=== PATIENT | male | born 1975 | race Caucasian/White ===

== ENCOUNTER 2018-09-22 05:51 | Emergency (ER) | payer OTHER, MEDICAID ==
[2018-09-22 05:57] VITALS: BP 125/81
--- NOTE | 2018-09-22 06:23 | ER Document Report ---
ED General - General Chief Complaint: Finger Injury Stated Complaint: FINGER PAIN Time Seen by Provider: 09/22/18 06:04 Primary Care Provider: [facility] [Provider Group] - Follow up in 3-5 days DANE JOHNSON MD [ACTIVE STAFF] - Follow up in 3-5 days Notes: Patient is a 43-year-old male that presents to the emergency department for chief complaint of left middle finger pain after injury. Patient reports that a few weeks ago, he was at work, and his hand slipped and he jammed his left middle finger against the wall. He states has been working through the pain because it was a newer job and he could not afford to take time off so he eventually decided come in to have it checked out since he still been having some pain. Pain is mainly at the PIP joint, and has been swollen since then, he continues to use it. He is left-handed. He denies any other injuries. Denies numbness, tingling or weakness. He currently rates the pain as a 2 out of 10, is an aching pain, worse with range of motion. Past Medical History: Denies chronic medical conditions Past Surgical History: Hand surgery, wrist surgery Social History: Admits to smoking cigarettes, denies alcohol or drug use. Family History: Reviewed and noncontributory for presenting illness Allergies: Reviewed, see documented allergy list. REVIEW OF SYSTEMS: Other than noted above, the 12 point review of systems was reviewed with the patient and were negative, all pertinent findings are included in the HPI. PHYSICAL EXAMINATION: Vital signs reviewed, nursing noted reviewed. GENERAL: Well-appearing, well-nourished and in no acute distress. HEAD: Atraumatic, normocephalic. EYES: Eyes appear normal, sclera anicteric, conjunctiva are normal. ENT: Moist mucous membranes. NECK: Normal range of motion, supple without lymphadenopathy LUNGS: Wheezing noted throughout all lung boles, bilaterally, no acute respiratory distress. HEART: Regular rate and rhythm without murmurs EXTREMITIES: The left middle finger, has a mildly swollen PIP joint, that is tender to palpate, focal tenderness proximally to the joint, but patient does have good range of motion with flexion and extension. Pain is worse with resistance. He is also noted to have a small subungual hematoma of the middle finger as well on the left, which she reports is from a different injury. The rest the patient's extremity exam is grossly unremarkable. NEUROLOGICAL: No focal neurological deficits. Moves all extremities spontaneously Motor and sensory grossly intact on exam. PSYCH: Normal mood, normal affect. SKIN: Warm, Dry, normal turgor, no rashes or lesions noted on exposed skin TRAVEL OUTSIDE OF THE [place] IN LAST 30 DAYS: No - Related Data Allergies/Adverse Reactions: succinylcholine Allergy (Intermediate, Verified 09/22/18 05:53) Past Medical History - Social History Smoking Status: Current Every Day Smoker Family History: Reviewed & Not Pertinent Physical Exam - Vital signs Vitals: Temp Pulse Resp BP Pulse Ox 97.8 F 84 20 125/81 99 09/22/18 05:54 09/22/18 05:54 09/22/18 05:54 09/22/18 05:54 09/22/18 05:54 Course - Re-evaluation Re-evalutation: Patient seen and examined, vital signs reviewed. Patient appeared well, no acute distress. X-rays were obtained of the left fingers, did not reveal any acute fracture, will place in a splint, likely sprain of the PIP joint, have him follow-up with hand surgery. Patient agreeable to plan of care, advised NSAIDs and maintaining the splint until further advised, at least 1 week. Patient will also be treated for bronchitis with bronchospasm, advised to discontinue smoking, education given on smoking cessation, prescribed at his own for 5 days, and dispense albuterol inhaler advised to use 2 puffs every 4 hours as needed for cough and shortness of breath. Patient agreed with plan of care, and discharged home in stable condition. *Note is created using voice recognition software and may contain spelling, syntax or grammatical errors. - Vital Signs Vital signs: Temp Pulse Resp BP Pulse Ox 97.8 F 84 20 125/81 99 09/22/18 05:54 09/22/18 05:54 09/22/18 05:54 09/22/18 05:54 09/22/18 05:54 Discharge - Discharge Clinical Impression: Finger injury, Bronchospasm with bronchitis, acute Condition: Stable Disposition: HOME, SELF-CARE Instructions: Sprained Finger ([facility]) Prescriptions: Ibuprofen [Motrin 600 Mg Tablet] 600 mg PO TID #15 tablet RX: Prednisone [Deltasone 10 mg Tablet] 40 mg PO DAILY #20 tablet Referrals: ELIZABETH,DANE, MD [ACTIVE STAFF] - Follow up in 3-5 days [facility] [Provider Group] - Follow up in 3-5 days
[2018-09-22] MEDS ORDERED: ALBUTEROL SULFATE HFA (90 MCG/PUFF) 8 GM MDI (1 MDI/ER DISP) IH ONE (06:51)
--- NOTE | 2018-09-22 07:00 | RADIOLOGY REPORT (SQ) ---
EXAM DESCRIPTION: XR FINGERS COMPLETED DATE/TME: 09/22/2018 00:00 CLINICAL HISTORY: 43 years, Male, injuried middle finger COMPARISON: None. NUMBER OF VIEWS: Three TECHNIQUE: Three views of the left middle finger. LIMITATIONS: None. FINDINGS: There is no acute fracture or dislocation. The joint spaces are preserved. There is mild soft tissue swelling around the third PIP joint. No radiopaque foreign body. IMPRESSION: No acute fracture or dislocation. copyright 2010 [employer]- All Rights Reserved
== END 2018-09-22 07:02 | disposition home or self-care (01) ==
LOC: ER 05:51
DX: S69.92XA Unspecified injury of left wrist, hand and finger(s), initial encounter (principal); M25.442 Effusion, left hand; M79.645 Pain in left finger(s); W22.01XA Walked into wall, initial encounter; Y99.0 Civilian activity done for income or pay; J20.9 Acute bronchitis, unspecified; F17.210 Nicotine dependence, cigarettes, uncomplicated; Z88.8 Allergy status to other drugs, medicaments and biological substances
CPT/HCPCS: 99283; 73140; J3490

== ENCOUNTER 2019-03-02 18:14 | Emergency (ER) | payer SELFPAY ==
--- NOTE | 2019-03-02 19:00 | ER Document Report ---
ED Medical Screen (RME) - General Chief Complaint: Psych Problem Stated Complaint: IVC Time Seen by Provider: 03/02/19 18:48 Notes: Patient is a 43-year-old male who presents to the emergency department with IVC paperwork. He was at [place] for alcohol detox. He checked in about 6 days ago. He was having auditory and visual hallucinations and was destroying the property in the mailbox at [place]. He was throwing objects, therefore law enforcement was called and patient is now currently under custody. They gave him high doses of antipsychotics, but the patient was still acting out. Patient states that the only pain he has is in his left upper leg, but is due to falling off a ladder when he was at work about 6 weeks ago. Denies any suicidal or homicidal ideation. Exam: Calm and cooperative, in custody. I have greeted and performed a rapid initial assessment of this patient. A comprehensive ED assessment and evaluation of the patient, analysis of test results and completion of medical decision making process will be conducted by an additional ED providers. TRAVEL OUTSIDE OF THE [place] IN LAST 30 DAYS: No - Related Data Allergies/Adverse Reactions: succinylcholine Allergy (Intermediate, Verified 02/25/19 00:01) Past Medical History Renal/ Medical History: Denies: Hx Peritoneal Dialysis Physical Exam - Vital signs Vitals: Temp Pulse Resp BP Pulse Ox 98.4 F 105 H 18 139/94 H 98 03/02/19 18:22 03/02/19 18:22 03/02/19 18:22 03/02/19 18:22 03/02/19 18:22 Course - Vital Signs Vital signs: Temp Pulse Resp BP Pulse Ox 98.4 F 105 H 18 139/94 H 98 03/02/19 18:22 03/02/19 18:22 03/02/19 18:22 03/02/19 18:22 03/02/19 18:22
[2019-03-02 20:43] LABS: ABSOLUTE EOSINOPHILS # (AUTO) 0.1 10^3/uL (0.0-0.6); ABSOLUTE LYMPHOCYTES (AUTO) 1.2 10^3/uL (0.5-4.7); ABSOLUTE MONOCYTES (AUTO) 0.9 10^3/uL (0.1-1.4); ABSOLUTE NEUT (AUTO) 6.5 10^3/uL (1.7-8.2); BASOPHILS % (AUTO) 0.4 % (0-2); EOSINOPHILS % (AUTO) 1.4 % (0-6); HEMATOCRIT 41.4 % (37.9-51.0); HEMOGLOBIN 14.2 g/dL (13.5-17.0); LYMPHOCYTES % (AUTO) 13.8 % (13-45); MEAN CORPUSCULAR HEMOGLOBIN 31.8 pg (27.0-33.4); MEAN CORPUSCULAR HGB CONC 34.2 g/dL (32.0-36.0); MEAN CORPUSCULAR VOLUME 93 fl (80-97); PLATELET COUNT 146 10^3/uL (150-450); RED BLOOD COUNT 4.45 10^6/uL (4.35-5.55); RED CELL DISTRIBUTION WIDTH 13.4 % (11.5-14.0); SEGMENTED NEUTROPHILS % (AUTO) 74.4 % (42-78); TOTAL CELLS COUNTED % (AUTO) 100 %; WHITE BLOOD COUNT 8.7 10^3/uL (4.0-10.5)
[2019-03-02 20:49] LABS: APPEARANCE,URINE CLEAR; BILIRUBIN,URINE NEGATIVE (NEGATIVE); COLOR,URINE STRAW; GLUCOSE, URINE NEGATIVE (NEGATIVE); KETONES,URINE NEGATIVE (NEGATIVE); LEUKOCYTE ESTERASE,URINE NEGATIVE (NEGATIVE); NITRITE,URINE NEGATIVE (NEGATIVE); PROTEIN,URINE NEGATIVE (NEGATIVE); URINE SPECIFIC GRAVITY 1.002; UROBILINOGEN,URINE NEGATIVE mg/dL (<2.0)
[2019-03-02 21:05] LABS: URINE AMPHETAMINES SCREEN NEGATIVE; URINE BARBITURATES SCREEN NEGATIVE; URINE BENZODIAZEPINES SCREEN NEGATIVE; URINE COCAINE SCREEN NEGATIVE; URINE MARIJUANA (THC) SCREEN UNCONFIRMED POSITIVE; URINE METHADONE SCREEN NEGATIVE; URINE PHENCYCLIDINE SCREEN NEGATIVE
[2019-03-02 21:21] LABS: ALBUMIN 4.2 g/dL (3.5-5.0); ALKALINE PHOSPHATASE 99 U/L (38-126); ANION GAP 9 (5-19); ASPARTATE AMINO TRANSFERASE 48 U/L (17-59); BILIRUBIN,DIRECT 0.3 mg/dL (0.0-0.4); BILIRUBIN,TOTAL 0.3 mg/dL (0.2-1.3); BLOOD UREA NITROGEN 12 mg/dL (7-20); CALCIUM 9.8 mg/dL (8.4-10.2); CARBON DIOXIDE 29 mmol/L (22-30); CHLORIDE 102 mmol/L (98-107); GLUCOSE 147 mg/dL (75-110); POTASSIUM 4.6 mmol/L (3.6-5.0); TOTAL PROTEIN 6.9 g/dL (6.3-8.2)
[2019-03-02 21:27] LABS: ACETAMINOPHEN < 10 ug/mL (10-30); ALCOHOL < 10 mg/dL (NONE DETECTED); SALICYLATE < 1.0 mg/dL (2.0-20.0)
--- NOTE | 2019-03-02 21:59 | EKG REPORT ---
SEVERITY:- BORDERLINE ECG - SINUS RHYTHM PROBABLE LEFT ATRIAL ABNORMALITY : Confirmed by: Martín Foote MD 02-Mar-2019 21:59:04
--- NOTE | 2019-03-03 01:37 | ER Document Report ---
ED Psych Disorder / Suicide - General TRAVEL OUTSIDE OF THE [place] IN LAST 30 DAYS: No <SHANNON JOE - Last Filed: 03/03/19 01:32> <FREEMAN GUERIN - Last Filed: 03/03/19 11:47> <MARILIA FERREIRA - Last Filed: 03/03/19 13:09> - General Chief Complaint: Psych Problem Stated Complaint: IVC Time Seen by Provider: 03/02/19 18:48 Primary Care Provider: [facility] [Outside] - Follow up as needed [facility] [Outside] - 03/12/19 11:00 am Notes: RME NOTE: Patient is a 43-year-old male who presents to the emergency department with IVC paperwork. He was at [place] for alcohol detox. He checked in about 6 days ago. He was having auditory and visual hallucinations and was destroying the property in the mailbox at [place]. He was throwing objects, therefore law enforcement was called and patient is now currently under custody. They gave him high doses of antipsychotics, but the patient was still acting out. Patient states that the only pain he has is in his left upper leg, but is due to falling off a ladder when he was at work about 6 weeks ago. Denies any suicidal or homicidal ideation. Exam: Calm and cooperative, in custody. MY HPI: Patient is a cooperative 43-year-old male presents to the emergency department stating "I threw a couple of pens and everybody got so upset." Patient voices that he picked the pens up and is unsure of why he is in the emergency room. Patient's denying suicidal or homicidal ideations. He does admit to visual and auditory hallucinations. States he does not currently have them but has had the m recently. IVC paperwork is already filled out by Nyla Dunbar. Paperwork is stating that the patient has been given high doses of antipsychotics at the facility but is still experiencing hallucinations and increased agitation. Patient has been very calm and cooperative with staff in the emergency room thus far. (SHANNON JOE) - Related Data Allergies/Adverse Reactions: succinylcholine Allergy (Intermediate, Verified 02/25/19 00:01) Past Medical History - General Information source: Patient, Outside Facility Records - Social History Smoking Status: Unknown if Ever Smoked Family History: Reviewed & Not Pertinent Patient has suicidal ideation: No Patient has homicidal ideation: No Renal/ Medical History: Denies: Hx Peritoneal Dialysis <HEATHANTONIOVARUNYASH - Last Filed: 03/03/19 01:32> Review of Systems - Review of Systems Constitutional: No symptoms reported EENT: No symptoms reported Cardiovascular: No symptoms reported Respiratory: No symptoms reported Gastrointestinal: No symptoms reported Genitourinary: No symptoms reported Male Genitourinary: No symptoms reported Musculoskeletal: No symptoms reported Skin: No symptoms reported Hematologic/Lymphatic: No symptoms reported Neurological/Psychological: See HPI <SHANNON JOE - Last Filed: 03/03/19 01:32> Physical Exam <SHANNON JOE - Last Filed: 03/03/19 01:32> - Vital signs Vitals: Temp Pulse Resp BP Pulse Ox 98.4 F 105 H 18 139/94 H 98 03/02/19 18:22 03/02/19 18:22 03/02/19 18:22 03/02/19 18:22 03/02/19 18:22 - Notes Notes: GENERAL: Alert, interacts well. No acute distress. HEAD: Normocephalic, atraumatic. EYES: Pupils equal, round, and reactive to light. Extraocular movements intact. ENT: Oral mucosa moist, tongue midline. NECK: Full range of motion. Supple. Trachea midline. LUNGS: Clear to auscultation bilaterally, no wheezes, rales, or rhonchi. No respiratory distress. HEART: Regular rate and rhythm. No murmur ABDOMEN: Soft, non-tender. Non-distended. Bowel sounds present in all 4 quad rants. EXTREMITIES: Moves all 4 extremities spontaneously. No edema, normal radial and dorsalis pedis pulses bilaterally. No cyanosis. BACK: no cervical, thoracic, lumbar midline tenderness. No saddle anesthesia, normal distal neurovascular exam. NEUROLOGICAL: Alert and oriented x3. Normal speech. cranial nerves II through XII grossly intact PSYCH: Normal affect, normal mood. SKIN: Warm, dry, normal turgor. No rashes or lesions noted. (SHANNON JOE) Course - Laboratory Result Diagrams: 03/02/19 20:20 03/02/19 20:20 <SHANNON JOE - Last Filed: 03/03/19 01:32> - Laboratory Result Diagrams: 03/02/19 20:20 03/02/19 20:20 <FREEMAN GUERIN - Last Filed: 03/03/19 11:47> - Laboratory Result Diagrams: 03/02/19 20:20 03/02/19 20:20 <MARILIA FERREIRA - Last Filed: 03/03/19 13:09> - Re-evaluation Re-evalutation: Laboratory 03/02/19 03/02/19 03/02/19 20:20 20:20 20:20 WBC 8.7 RBC 4.45 Hgb 14.2 Hct 41.4 MCV 93 MCH 31.8 MCHC 34.2 RDW 13.4 Plt Count 146 L Seg Neutrophils % 74.4 Lymphocytes % 13.8 Monocytes % 10.0 Eosinophils % 1.4 Basophils % 0.4 Absolute Neutrophils 6.5 Absolute Lymphocytes 1.2 Absolute Monocytes 0.9 Absolute Eosinophils 0.1 Absolute Basophils 0.0 Sodium 139.5 Potassium 4.6 Chloride 102 Carbon Dioxide 29 Anion Gap 9 BUN 12 Creatinine 0.99 Est GFR ( Amer) > 60 Est GFR (Non-Af Amer) > 60 Glucose 147 H Calcium 9.8 Total Bilirubin 0.3 Direct Bilirubin 0.3 Neonat Total Bilirubin Not Reportable Neonat Direct Bilirubin Not Reportable Neonat Indirect Bili Not Reportable AST 48 ALT 33 Alkaline Phosphatase 99 Total Protein 6.9 Albumin 4.2 Urine Color STRAW Urine Appearance CLEAR Urine pH 7.0 Ur Specific [place] 1.002 Urine Protein NEGATIVE Urine Glucose (UA) NEGATIVE Urine Ketones NEGATIVE Urine Blood NEGATIVE Urine Nitrite NEGATIVE Urine Bilirubin NEGATIVE Urine Urobilinogen NEGATIVE Ur Leukocyte Esterase NEGATIVE Urine WBC (Auto) 0 Urine Mucus (Auto) RARE Urine Ascorbic Acid NEGATIVE Salicylates < 1.0 L Urine Opiates Screen Urine Methadone Screen Acetaminophen < 10 L Ur Barbiturates Screen Ur Phencyclidine Scrn Ur Amphetamines Screen U Benzodiazepines Scrn Urine Cocaine Screen U Marijuana (THC) Screen Serum Alcohol < 10 03/02/19 20:20 WBC RBC Hgb Hct MCV MCH MCHC RDW Plt Count Seg Neutrophils % Lymphocytes % Monocytes % Eosinophils % Basophils % Absolute Neutrophils Absolute Lymphocytes Absolute Monocytes Absolute Eosinophils Absolute Basophils Sodium Potassium Chloride Carbon Dioxide Anion Gap BUN Creatinine Est GFR ( Amer) Est GFR (Non-Af Amer) Glucose Calcium Total Bilirubin Direct Bilirubin Neonat Total Bilirubin Neonat Direct Bilirubin Neonat Indirect Bili AST ALT Alkaline Phosphatase Total Protein Albumin Urine Color Urine Appearance Urine pH Ur Specific [place] Urine Protein Urine Glucose (UA) Urine Ketones Urine Blood Urine Nitrite Urine Bilirubin Urine Urobilinogen Ur Leukocyte Esterase Urine WBC (Auto) Urine Mucus (Auto) Urine Ascorbic Acid Salicylates Urine Opiates Screen NEGATIVE Urine Methadone Screen NEGATIVE Acetaminophen Ur Barbiturates Screen NEGATIVE Ur Phencyclidine Scrn NEGATIVE Ur Amphetamines Screen NEGATIVE U Benzodiazepines Scrn NEGATIVE Urine Cocaine Screen NEGATIVE U Marijuana (THC) Screen UNCONFIRMED POSITIVE Serum Alcohol Patient's EKG shows a sinus rhythm at a rate of 86, QTc 426, no ST segment elevations or depressions noted. Patient is currently medically cleared awaiting psychiatric evaluation. (SHANNON JOE) - Vital Signs Vital signs: Temp Pulse Resp BP Pulse Ox 97.6 F 72 18 127/85 H 100 03/03/19 07:01 03/03/19 11:37 03/03/19 11:37 03/03/19 11:37 03/03/19 11:37 - Laboratory Laboratory results interpreted by ia: 03/02/19 03/02/19 20:20 20:20 Plt Count 146 L Glucose 147 H Salicylates < 1.0 L Acetaminophen < 10 L Discharge <SHANNON JOE - Last Filed: 03/03/19 01:32> <FREEMAN GUERIN - Last Filed: 03/03/19 11:47> <MARILIA FERREIRA - Last Filed: 03/03/19 13:09> - Discharge Clinical Impression: Hallucination, Status post alcohol detoxification Condition: Stable Disposition: HOME, SELF-CARE Additional Instructions: You have been evaluated by both medical and behavioral health providers while in the emergency department. You have been cleared from both acute medical and psychiatric services. You went to the [facility] the past 6 days for alcohol detoxification, do not wish to return, mentioned being on a wait list for recovery program, and agreed to linkage to outpatient dual diagnosis (mental health and substance abuse) treatment. Hallucinations (per [facility]) You seem to be having hallucinations. Hallucinations are seeing, hearing, or feeling things that don't exist. These symptoms commonly occur with drug abuse and schizophrenia. Drugs like PCP, LSD, MDMA, peyote, and "psychedelic mushrooms" can cause frightening hallucinations. Users of methamphetamine or crack cocaine often see and feel bugs crawling on their skin. Patients with schizophrenia may hear voices that no one else can hear. The delusions of schizophrenia often involve conspiracies or relationships that are not real. When symptoms are due to drug abuse, the mental state usually improves as the drug wears off. Someone you trust should be with you until you are better, to protect you and calm your fears. Tranquilizer medicine is helpful at controlling hallucinations, anxiety, and deluded thoughts. Get a proper diet and enough sleep. Most patients do very well when they get proper medical treatment and social support. You should return at once if your symptoms get worse, if you are having suicidal thoughts or thoughts about hurting others, or if you feel that you are in danger. Alcohol Withdrawal (what you may have been experiencing or going through while in detoxification at [facility]) Your symptoms are caused by alcohol withdrawal. After a period of frequent drinking, the brain and body are changed by the alcohol. When you quit or reduce your drinking, the nervous system becomes unstable. Withdrawal symptoms can start a few hours after your last drink, but sometimes don't begin until a couple of days later. Symptoms can include shakiness, sweating, insomnia, nausea, vomiting, fearfulness, hallucinations, and seizures. In addition to the acute effects of alcohol withdrawal, we often have to deal with the medical effects of alcoholism. These problems often include dehydration, stomach irritation, intestinal bleeding, low blood sugar, liver disease, and pancreas inflammation. Treatment for alcohol withdrawal includes mild sedatives, vitamins, and fluids. You need to be with someone who can help if symptoms become severe. Many patients can withdraw at home. Admission to the hospital or a detox facility may be necessary if withdrawal symptoms are severe and uncontrollable. Abstaining from alcohol is the only effective long-term treatment. If you start drinking again, you will not be able to control yourself after the first drink. Treatment programs are available. In addition, many alcoholics benefit from Alcoholics Anonymous or other support groups available through your counselor or [employer] bus[employer]. [facility] and [facility] are support groups for friends and family members of an alcoholic. Go to the emergency room if you develop persistent vomiting, severe abdominal pain, fever, shortness of breath, hallucinations, uncontrollable tremors, or seizures. Follow-Up Plan: You have stated you have detoxed from alcohol since you had been at the [facility] for 6 days and are on a wait list for a recovery program. You have been scheduled with [facility] for outpatient follow up on 03/12/19 at 1100. This will be a general intake/screening and you will then be set up with therapy and medication management appointments. You have also been provided the [facility] Mobile Crisis number for crisis, talk therapy and linkage to other services/supports. Prescriptions: Buspirone HCl [Buspar 10 mg Tablet] 10 mg PO BID #14 tablet Venlafaxine HCl ER [Effexor Xr 37.5 mg Cap.sr] 37.5 mg PO BID #14 cap.sr.[id number] Referrals: [facility] [Outside] - Follow up as needed [facility] [Outside] - 03/12/19 11:00 am
--- NOTE | 2019-03-03 10:34 | ER Document Report ---
Doctor's Note Notes: 03/03/19 10:33 Rounds: Reviewed and patient interviewed. Patient was referred here from detox where he has been for the past 6 days. He became very aggressive and agitated and combative, hearing voices. Patient says he thinks it was due to 1 of the medications he was being prescribed in the detox facility. Drug screen was positive for marijuana. Other labs are essentially normal. Vital signs are all normal. Patient is calm and cooperative and does not appear in any way agitated this morning. Patient appears to be medically stable for transfer or discharge. Neil Lakhani MD
[2019-03-03 11:38] VITALS: BP 127/85
== END 2019-03-03 14:01 | disposition home or self-care (01) ==
LOC: ER 18:14
DX: R44.1 Visual hallucinations (principal); R44.0 Auditory hallucinations; M79.605 Pain in left leg; W11.XXXA Fall on and from ladder, initial encounter; Y99.0 Civilian activity done for income or pay; Z88.8 Allergy status to other drugs, medicaments and biological substances
CPT/HCPCS: 36415; 80053; 80307; 81001; 85025; 93005; 93010; 99284